=== PATIENT | female | born 1995 | race Caucasian/White ===

== ENCOUNTER 2016-08-26 21:24 | Emergency (ER) | payer BC ==
[2016-08-26] MEDS ORDERED: IBUPROFEN 600 MG TABLET PO STA (23:14)
[2016-08-26] MEDS ORDERED: CYCLOBENZAPRINE 10 MG TABLET PO STA (23:15)
[2016-08-26] MEDS ORDERED: CYCLOBENZAPRINE 10 MG TABLET PO ONE (23:25)
[2016-08-26] MEDS ORDERED: IBUPROFEN 600 MG TABLET PO ONE (23:25)
== END 2016-08-26 23:35 | disposition home or self-care (01) ==
DX: M54.5 Low back pain (principal)
CPT/HCPCS: 81003; 81025; 99283; A9270

== ENCOUNTER 2017-08-22 21:21 | Emergency (ER) | payer BC ==
--- NOTE | 2017-08-22 21:27 | ED Physician Documentation ---
PD HPI URI - Stated complaint Stated Complaint: COUGH/CHILLS - Chief complaint Chief Complaint: Resp PD PAST MEDICAL HISTORY - Present Medications Home Medications: Ambulatory Orders Medication Instructions Recorded Confirmed Cyclobenzaprine [Flexeril] 10 mg PO TID PRN #10 tablet 08/26/16 Ondansetron Odt [Zofran] 4 mg TL Q6H PRN #14 tablet 08/26/16 - Allergies Allergies/Adverse Reactions: Allergies Allergy/AdvReac Type Severity Reaction Status Date / Time No Known Drug Allergies Allergy Verified 08/26/16 21:30 Results - Vitals Vitals: Vital Signs - 24 hr 08/22/17 21:24 Temperature 37.4 C Heart Rate 115 H Respiratory 18 Rate Blood Pressure 146/99 H O2 Saturation 98 Oxygen O2 Source Room air
[2017-08-22] MEDS ORDERED: ONDANSETRON ODT 4 MG TABLET TL STA (21:30)
[2017-08-22] MEDS ORDERED: IBUPROFEN 800 MG TABLET PO STA (21:30)
--- NOTE | 2017-08-22 21:31 | ED Physician Documentation ---
PD HPI URI - Stated complaint Stated Complaint: COUGH/CHILLS - Chief complaint Chief Complaint: Resp - History obtained from History obtained from: Patient - History of Present Illness Timing - onset: Yesterday (Sick since last night with nonproductive cough, body aches and bad chills. She has also had nausea and vomiting but no diarrhea. 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 No clear diagnosis there.) Review of Systems Constitutional: reports: Fever, Chills, Myalgias, Fatigue Nose: denies: Rhinorrhea / runny nose, Congestion Throat: denies: Sore throat Respiratory: reports: Cough. denies: Dyspnea GI: reports: Nausea, Vomiting. denies: Abdominal Pain PD PAST MEDICAL HISTORY - Present Medications Home Medications: Ambulatory Orders Medication Instructions Recorded Confirmed Cyclobenzaprine [Flexeril] 10 mg PO TID PRN #10 tablet 08/26/16 Ondansetron Odt [Zofran] 4 mg TL Q6H PRN #14 tablet 08/26/16 Ibuprofen [Motrin] 800 mg PO Q8H PRN #30 tablet 08/22/17 Ondansetron HCl [Zofran] 4 mg PO Q6H PRN #10 tablet 08/22/17 Oseltamivir [Tamiflu] 75 mg PO BID #10 capsule 08/22/17 - Allergies Allergies/Adverse Reactions: Allergies Allergy/AdvReac Type Severity Reaction Status Date / Time No Known Drug Allergies Allergy Verified 08/26/16 21:30 PD ED PE NORMAL - Vitals Vital signs reviewed: Yes - General General: Alert and oriented X 3, No acute distress - HEENT HEENT: PERRL, EOMI, Ears normal, Moist mucous membranes, Pharynx benign - Neck Neck: Supple, no meningeal sign, No bony TTP - Cardiac Cardiac: RRR, No murmur - Respiratory Respiratory: No respiratory distress, Clear bilaterally - Abdomen Abdomen: Non tender - Derm Derm: No rash - Neuro Neuro: Alert and oriented X 3, Normal speech Results - Vitals Vitals: Vital Signs - 24 hr 08/22/17 21:24 Temperature 37.4 C Heart Rate 115 H Respiratory 18 Rate Blood Pressure 146/99 H O2 Saturation 98 Oxygen O2 Source Room air - Labs Labs: Laboratory Tests 08/22/17 21:35 Influenza A (Rapid) Negative Influenza B (Rapid) POSITIVE H - Rads (name of study) 2v chest Radiology: EMP read contemporaneously (normal) Departure - Departure Disposition: 01 Home, Self Care Clinical Impression: Influenza B Condition: Good Record reviewed to determine appropriate education?: Yes Instructions: ED Flu, Medication: Tamiflu (Oseltamivir) Prescriptions: Ibuprofen [Motrin] 800 mg PO Q8H PRN #30 tablet PRN Reason: PAIN &/OR FEVER Ondansetron HCl [Zofran] 4 mg PO Q6H PRN #10 tablet PRN Reason: Nausea / Vomiting Oseltamivir [Tamiflu] 75 mg PO BID #10 capsule Comments: Return if worse, recheck with your doctor in a few days if not better. Drink plenty of fluids. Your blood pressure was elevated today on check into the emergency department. This does not mean that you have hypertension, it is a common phenomenon to come to the emergency department and have elevated blood pressure. I recommend that you see your primary care physician within the week to have it rechecked when you are feeling better. Forms: Activity restrictions
--- NOTE | 2017-08-22 22:05 | XRAY Preliminary Report ---
Exam: XR CHEST 2 VIEW X-RAY IMPRESSION: Normal 2-view chest radiography. [facility] SITE ID: [id number]
--- NOTE | 2017-08-22 22:05 | XRAY Report ---
EXAM: CHEST RADIOGRAPHY EXAM DATE: 08/22/2017 09:33 PM. CLINICAL HISTORY: Cough. COMPARISON: None. TECHNIQUE: 2 views. FINDINGS: Lungs/Pleura: No focal opacities evident. No pleural effusion. No pneumothorax. Normal volumes. Mediastinum: Heart and mediastinal contours are unremarkable. Other: None. IMPRESSION: Normal 2-view chest radiography. [facility] Referring Provider Line: [phone] SITE ID: [id number]
[2017-08-22] MEDS ORDERED: OSELTAMIVIR 75 MG CAPSULE PO STA (22:11)
[2017-08-22 22:21] VITALS: BP 142/88
== END 2017-08-22 22:24 | disposition home or self-care (01) ==
LOC: ED 21:21
DX: J10.1 Influenza due to other identified influenza virus with other respiratory manifestations (principal); R03.0 Elevated blood-pressure reading, without diagnosis of hypertension
CPT/HCPCS: 71046; 87275; 87276; 99283; A9270; Q0162